=== PATIENT | male | born 1940 | race Hispanic/Latino ===

== ENCOUNTER 2022-02-22 15:48 | Emergency (ER) | payer OTHER, SELFPAY ==
[2022-02-22 15:49] VITALS: BP 163/94; PULSE 79; RESP 16; TEMP 36.9; O2SAT 97; BMI 27.9
--- NOTE | 2022-02-22 15:55 | ED.FALL ---
HPI - Fall General Chief Complaint: Fall Stated Complaint: GLF Time Seen by Provider: 02/22/22 15:50 Source: patient Mode of arrival: EMS Limitations: no limitations History of Present Illness HPI Narrative: Patient is an 81-year-old male. Not on anticoagulation. Here for evaluation of injuries that he sustained when he tripped off of a curb. He did fall and hit his head. He has no neck pain. Was having some left thigh pain. There was no loss of consciousness. He was able to get up and walk afterwards and was actually going to continue to keep walking until it was noticed he was bleeding from the left side of his head. EMS was called. Bandages were placed prior to arrival. No neck pain. No chest pain. No shortness of breath. No abdominal pain. No nausea or vomiting. No vision changes. Related Data Allergies Allergy/AdvReac Type Severity Reaction Status Date / Time No Known Drug Allergies Allergy Verified 02/22/22 15:52 Review of Systems Review of Systems ROS Unobtainable: All systems reviewed & are unremarkable except as noted in HPI and below Patient History Social History Smoking Status: Never smoker Smoking Status: Never smoker alcohol intake frequency: holidays/special occasions only Substance Use Type: does not use Exam Initial Vital Signs Initial Vital Signs: Vital Signs Temperature 98.4 F 02/22/22 15:49 Pulse Rate 79 02/22/22 15:49 Respiratory Rate 16 02/22/22 15:49 Blood Pressure 163/94 H 02/22/22 15:49 Pulse Oximetry 97 02/22/22 15:49 Const General: cooperative and healthy appearing [facility] Head: abrasion, contusion and laceration (Above left eye) Eyes Visual Pierce: normal visual pierce by confrontation Periorbital: periorbital findings normal Eyelids: eyelids normal Resp Effort & Inspection: normal respiratory effort Auscultation: clear to auscultation bilaterally Cardio Rate: regular rate Rhythm: regular rhythm Back/Spine/Pelvis Cervical Spine: No cervical spinal tenderness Skin Other: 3 cm irregular laceration above the left eye with surrounding ecchymosis. Patient also with a superficial skin tear to the dorsum of the right hand. Neuro General: patient alert, patient awake and moves all extremities Extrem General: normal to inspection and capillary refill normal Other: Patient does have tenderness along the lateral aspect of the left thigh however he can flex and extend at the left hip and left knee without discomfort. Psych Appearance: grossly normal and well kempt Procedures Laceration Repair Laceration 1: Site: face (Superior lateral left eye) Side (If applicable): left Size (cm): 5 Description: stellate, irregular and clean Depth: simple, single layer Local Anesthetic: lidocaine 1% and with epi Amount of anesthesia used (mL): 6 Pre-repair: wound explored, irrigated extensively and deep structures intact Skin layer closed with: nylon Size (cm): 5-0 Number of sutures: 8 Technique: simple, interrupted Scores GCS [place] coma scale eye opening: Spontaneous [place] coma scale verbal response: Orientated [place] coma scale motor response: Obey commands [place] coma scale total score: 15 Nexus Score for C-Spine Focal Neurologic deficit present: No Midline spinal tenderness present: No Altered level of conciousness present: No Intoxication present: No Distracting Injury Present: No Nexus Criteria for C-spine: 0 Course Orders Ordered: Discontinued Medications Bacitracin (Bacitracin Oint 0.9 Gm Pckt) 2 applic TOP NOW ONE Stop: 02/22/22 16:23 Last Admin: 02/22/22 16:26 Dose: 2 applic Documented by: ZAHIDA Lidocaine/Epinephrine (Lidocaine 1% W/Epi) 1 ml SUBCUT NOW ONE Stop: 02/22/22 15:56 Last Admin: 02/22/22 16:03 Dose: 1 ml Documented by: ZAHIDA Vital Signs Vital signs: Vital Signs - 8 hr 02/22/22 15:49 02/22/22 16:39 Temperature 98.4 F Pulse Rate 79 65 Respiratory Rate 16 Blood Pressure 163/94 H 142/75 H Pulse Oximetry 97 96 MDM - Fall MDM Narrative Medical decision making narrative: Cervical spine cleared by nexus criteria. Patient not on anticoagulation. Is alert oriented x3. GCS 15. I do feel that we can hold on the head CT for now. Patient was able to ambulate without issues. The irregular wound which technically was 2 separate lacerations was closed as described above. He does have a skin tear on the back of his right hand which needs no intervention other than bandage here in the ER. He does have a contusion left lateral thigh however is able to ambulate and feel that we can hold on the x-rays for now. He was given care instructions return precautions. He expressed understanding agreement. Discharge Plan Departure Patient Disposition: Home Clinical Impression: Fall, Forehead laceration Instructions: DI for Laceration Repair, How to Prevent Falls Activity Restrictions/Additional Instructions: The stitches do need to be removed in 7 days. Until then you can shower like normal. You can also use topical antibiotic ointment over the area. Continue to take all of your medications as directed. Return to the emergency department for any new or worsening symptoms.
[2022-02-22] MEDS: LIDOCAINE 1% W/EPI 1 ML SUBCUT (16:03)
[2022-02-22] MEDS: BACITRACIN OINT 0.9 GM PCKT 2 APPLIC TOP (16:26)
[2022-02-22 16:39] VITALS: BP 142/75; PULSE 65; O2SAT 96
== END 2022-02-22 16:52 | disposition home or self-care (01) ==
PROVIDERS: Emergency Provider Emergency Medicine
DX: S01.81XA Laceration without foreign body of other part of head, initial encounter (principal); W01.10XA Fall on same level from slipping, tripping and stumbling with subsequent striking against unspecified object, initial encounter
CPT/HCPCS: 12013; 99282; 99283